=== PATIENT | female | born 1965 | race Caucasian/White ===

== ENCOUNTER 2024-12-31 21:18 | Inpatient (IN) | payer OTHER, SELFPAY ==
[2024-12-31] VITALS (9 sets, daily range): BP systolic 109–134; BP diastolic 67–84; BMI 17.5; BMI 16.9
[2024-12-31 16:15] LABS: Hematocrit 42.9 % (37.0-47.0); Hemoglobin 13.8 g/dL (12.0-16.0); Mean Corp Hgb Conc. 32.2 g/dL (33.0-37.0); Mean Corpuscular Volume 91.1 fL (81.0-99.0); Nucleated Red Blood Cells % 0 %; Platelet Count 472 10^3/uL (130-400); Red Cell Dist. Width 13.9 % (11.5-14.5)
[2024-12-31 16:32] LABS: ALT (SGPT) 16 U/L (0-35); AST (SGOT) 26 U/L (14-36); Albumin 4.7 g/dl (3.5-5.0); Alkaline Phosphatase 162 U/L (38-126); Blood Urea Nitrogen 12 mg/dl (7-17); Calcium 9.7 mg/dl (8.4-10.2); Carbon Dioxide 28 mmol/L (22-30); Chloride 100 mmol/L (98-107); Estimated Creatinine Clearance 62 ml/min; Glucose 177 mg/dl (70-99); Potassium 4.2 mmol/L (3.5-5.1); Sodium 137 mmol/L (135-145); Total Protein 8.0 g/dl (6.3-8.2); eGFR > 60.00
[2024-12-31] MEDS: DUONEB 3 ML INH (17:12)
[2024-12-31] MEDS: DECADRON 10 MG PO (17:12)
[2024-12-31 17:43] LABS: D-Dimer 0.89 ug/mlFEU (0.00-0.50)
[2024-12-31 18:35] LABS: Urine Character Cloudy (Clear)
[2024-12-31 18:56] LABS: Urine White Cell >100 /HPF (0-5)
--- NOTE | 2024-12-31 20:09 | ED.GENMED ---
History of Present Illness
<Kajal Jones NP - Last Filed: 12/31/24 23:13>
General
Chief Complaint: Cold/Flu/URI Symptoms
Source: patient
Exam Limitations: none
Time Seen by Provider: 12/31/24 15:49
Nursing documentation reviewed up to this point in time: agreed with
History of Present Illness
History of Present Illness:
Patient to ED with complaint of worsening SOB, increasing cough. Symptoms started 2-3 days ago. Denies fever/chills. History of COPD, using her inhalers at home without improvement. States she has had these symptoms before with pneumonia dx.
Past History
<Kajal Jones CLINICAL LABORATORY MANAGER - Last Filed: 12/31/24 23:13>
Past History
ED Past Medical History: COPD
ED Past Surgical History: None
Social History
Tobacco: Smoker (1/2ppd)
Review of Systems
<Kajal Jones NP - Last Filed: 12/31/24 23:13>
Review of Systems
Allergies reviewed?: Yes
All Other Systems: ROS reviewed and negative except as documented in HPI and ROS
Constitutional: Reports no symptoms
EENT: Reports no symptoms
Respiratory: Reports cough and trouble breathing
Cardiac: Reports no symptoms
ABD/GI: Reports no symptoms
: Reports no symptoms
Musculoskeletal: Reports no symptoms
Skin: Reports no symptoms
Neurological: Reports weakness
Psychiatric: Reports no symptoms
Phy Exam
<Kajal Jones NP - Last Filed: 12/31/24 23:13>
General Physical Exam
General Presentation: well appearing and no apparent distress
General age: appears stated age
General Skin: warm and dry
General Habitus: normal
General Mental: alert
Cardiovascular Exam
Cardiovascular Exam: regular rate/rhythm and no edema
Pulmonary Exam
Pulmonary Exam: decreased breath sounds and generalized wheezing
Oxygen Status: room air
Cough: coarse cough
Gastrointestinal Exam
Gastrointestinal Exam: normal bowel sounds, non tender, soft, no organomegaly and non distended
Musculoskeletal Exam
Musculoskeletal Exam: full ROM and neuro vasc intact
Skin Exam
Skin Exam: normal color, warm/dry and no rash
Psychiatric Exam
Psychiatric Exam: normal mood/affect
Sepsis
<Kajal Jones CLINICAL LABORATORY MANAGER - Last Filed: 12/31/24 23:13>
Sepsis Screening
Sepsis Assessment: Sepsis Ruled Out
Sepsis Screen
Sepsis Screen: Sepsis Ruled Out
Date: 12/31/24
Time: 23:13
Course
<Kajal Jones CLINICAL LABORATORY MANAGER - Last Filed: 12/31/24 23:13>
Orders/Labs/Results
Orders:
Orders
12/31/24 15:30
Electrocardiogram (*1) Urgent
Reason for Study: Chest Pain
12/31/24 15:31
EKG- Treatment ONCE
CR Chest - 2 Views Urgent
Comment:
Reason For Exam: cough, SOB
12/31/24 16:08
Complete Blood Count/With Diff Urgent
Comprehensive Metabolic Panel Urgent
12/31/24 16:45
Dexamethasone Pf [Decadron] 10 mg PO NOW STA
Ipratropium/Albuterol Sulfate [Duoneb] 3 ml INH R NOW STA
12/31/24 17:16
D-Dimer Urgent
12/31/24 17:49
CT Chest PE Study Urgent
Comment:
Reason For Exam: SOB, elevated DDimer
12/31/24 18:07
Urinalysis Reflex To Culture Urgent
Date Specimen was Collected: 12/31/24
Time Specimen was Collected: 18:03
Urine Microscopic Reflex Cult Urgent
Urine Culture Urgent
FLAKO Source: U
Specimen Description:
Date Specimen was Collected: 12/31/24
Time Specimen was Collected: 18:03
12/31/24 20:23
Albuterol Sulfate [Ventolin Nebules] 7.5 mg INH R NOW STA
12/31/24 20:24
Doxycycline [Vibramycin] 100 mg PO NOW STA
12/31/24 21:08
Admit/Transfer Patient As Directed
Co-Sign Provider:
Level of Care: Inpatient admission
Assign to:: Medical/Surgical
Physician / Group: Yo
Diagnosis: COPD exacerbation
Reason for Hospitalization: hypoxia with COPD exacerbation/pneumonia
Expected length of stay greater than two midnights?: Yes
ELOS- Estimated Length of Stay in days: 2
I certify the patient meets the requirements for IP care: Yes
PRN Pain Medication Management As Directed
May give lesser potent ordered pain med per pt: Yes
preference::
Protocol:: Medication orders for pain may be administered in a
manner that supports deferring to patient preference
when the pt is:
- Requesting an ordered lesser potent pain medication.
Least to most potent pain medications are defined
as: acetaminophen < NSAID < tramadol < opioids
(morphine, oxycodone, hydromorphone).
- Requesting a lesser dose of the same medication IF
ORDERED.
- Requesting a less intrusive route of administration
if both routes are prescribed by the provider (PO <
IV).
12/31/24 21:09
Code Status As Directed
Resuscitation Status: Full Code
12/31/24 22:21
Respiratory Culture/Gram Stain Routine
FLAKO Source: Sputum
Specimen Description:
Date Specimen was Collected: 12/31/24
Time Specimen was Collected: 22:12
Abnormal Lab Results
12/31/24 12/31/24 12/31/24
16:08 17:16 18:07
WBC 12.9 H 10^3/uL
(4.8-10.8)
MCHC 32.2 L g/dL
(33.0-37.0)
Plt Count 472 H 10^3/uL
(130-400)
Abs Immat Gran (auto) 0.1 H 10^3/uL
(0-0.05)
Absolute Neuts (auto) 9.2 H 10^3/uL
(1.4-6.5)
Absolute Monos (auto) 0.9 H 10^3/uL
(0.1-0.6)
Absolute Eos (auto) 0.8 H 10^3/uL
(0-0.7)
Lymphocytes % 14.6 L %
(20.5-51.1)
Eosinophils % 6.4 H %
(0-6)
D-Dimer 0.89 H ug/mlFEU
(0.00-0.50)
Glucose 177 H mg/dl
(70-99)
Alkaline Phosphatase 162 H U/L
(38-126)
Ur Occult Blood Reflex 3+ A
(Negative)
Leukocyte Esterase Rfl 3+ A
(Negative)
Urine WBC (Reflex) >100 A /HPF
(0-5)
Urine Glucose 4+ A
(Negative)
Urine Albumin (Reflex) 2+ A
(Neg - Trace)
12/31/24 16:08
12/31/24 16:08
Vital Signs
Initial and Last Documented VS:
Initial Vital Signs
Pulse Resp BP Pulse Ox
126 22 118/84 92
12/31/24 15:22 12/31/24 15:22 12/31/24 15:22 12/31/24 15:22
Last Documented Vital Signs
Temp Pulse Resp BP Pulse Ox
98.7 F 120 16 118/78 97
12/31/24 22:42 12/31/24 22:42 12/31/24 22:42 12/31/24 22:42 12/31/24 22:42
<Al Ventura, DO - Last Filed: 12/31/24 20:26>
Orders/Labs/Results
Orders:
Orders
12/31/24 15:30
Electrocardiogram (*1) Urgent
Reason for Study: Chest Pain
12/31/24 15:31
EKG- Treatment ONCE
CR Chest - 2 Views Urgent
Comment:
Reason For Exam: cough, SOB
12/31/24 16:08
Complete Blood Count/With Diff Urgent
Comprehensive Metabolic Panel Urgent
12/31/24 16:45
Dexamethasone Pf [Decadron] 10 mg PO NOW STA
Ipratropium/Albuterol Sulfate [Duoneb] 3 ml INH R NOW STA
12/31/24 17:16
D-Dimer Urgent
12/31/24 17:49
CT Chest PE Study Urgent
Comment:
Reason For Exam: SOB, elevated DDimer
12/31/24 18:07
Urinalysis Reflex To Culture Urgent
Date Specimen was Collected: 12/31/24
Time Specimen was Collected: 18:03
Urine Microscopic Reflex Cult Urgent
Urine Culture Urgent
FLAKO Source: U
Specimen Description:
Date Specimen was Collected: 12/31/24
Time Specimen was Collected: 18:03
12/31/24 20:23
Albuterol Sulfate [Ventolin Nebules] 7.5 mg INH R NOW STA
12/31/24 20:24
Doxycycline [Vibramycin] 100 mg PO NOW STA
12/31/24 21:08
Admit/Transfer Patient As Directed
Co-Sign Provider:
Level of Care: Inpatient admission
Assign to:: Medical/Surgical
Physician / Group: Yo
Diagnosis: COPD exacerbation
Reason for Hospitalization: hypoxia with COPD exacerbation/pneumonia
Expected length of stay greater than two midnights?: Yes
ELOS- Estimated Length of Stay in days: 2
I certify the patient meets the requirements for IP care: Yes
PRN Pain Medication Management As Directed
May give lesser potent ordered pain med per pt: Yes
preference::
Protocol:: Medication orders for pain may be administered in a
manner that supports deferring to patient preference
when the pt is:
- Requesting an ordered lesser potent pain medication.
Least to most potent pain medications are defined
as: acetaminophen < NSAID < tramadol < opioids
(morphine, oxycodone, hydromorphone).
- Requesting a lesser dose of the same medication IF
ORDERED.
- Requesting a less intrusive route of administration
if both routes are prescribed by the provider (PO <
IV).
12/31/24 21:09
Code Status As Directed
Resuscitation Status: Full Code
12/31/24 22:21
Respiratory Culture/Gram Stain Routine
FLAKO Source: Sputum
Specimen Description:
Date Specimen was Collected: 12/31/24
Time Specimen was Collected: 22:12
Abnormal Lab Results
12/31/24 12/31/24 12/31/24
16:08 17:16 18:07
WBC 12.9 H 10^3/uL
(4.8-10.8)
MCHC 32.2 L g/dL
(33.0-37.0)
Plt Count 472 H 10^3/uL
(130-400)
Abs Immat Gran (auto) 0.1 H 10^3/uL
(0-0.05)
Absolute Neuts (auto) 9.2 H 10^3/uL
(1.4-6.5)
Absolute Monos (auto) 0.9 H 10^3/uL
(0.1-0.6)
Absolute Eos (auto) 0.8 H 10^3/uL
(0-0.7)
Lymphocytes % 14.6 L %
(20.5-51.1)
Eosinophils % 6.4 H %
(0-6)
D-Dimer 0.89 H ug/mlFEU
(0.00-0.50)
Glucose 177 H mg/dl
(70-99)
Alkaline Phosphatase 162 H U/L
(38-126)
Ur Occult Blood Reflex 3+ A
(Negative)
Leukocyte Esterase Rfl 3+ A
(Negative)
Urine WBC (Reflex) >100 A /HPF
(0-5)
Urine Glucose 4+ A
(Negative)
Urine Albumin (Reflex) 2+ A
(Neg - Trace)
12/31/24 16:08
12/31/24 16:08
Vital Signs
Initial and Last Documented VS:
Initial Vital Signs
Pulse Resp BP Pulse Ox
126 22 118/84 92
12/31/24 15:22 12/31/24 15:22 12/31/24 15:22 12/31/24 15:22
Last Documented Vital Signs
Temp Pulse Resp BP Pulse Ox
98.7 F 120 16 118/78 97
12/31/24 22:42 12/31/24 22:42 12/31/24 22:42 12/31/24 22:42 12/31/24 22:42
<Kajal Jones NP - Last Filed: 12/31/24 23:13>
*Radiology
Radiology exam reviewed: radiology read reviewed
*Pulse Oximetry
SaO2: 99
Oxygen Mode of Delivery: Room air
Patient hypoxic: yes
Comment: 88% RA with ambulation. 94% RA at rest.
<Al Ventura DO - Last Filed: 12/31/24 20:26>
*Pulse Oximetry
SaO2: 89
Comment: 88
*Critical Care Note
Total Time (30-74mins, 75-104mins- exclusive of procedures): Not Applicable
<Kajal Jones NP - Last Filed: 12/31/24 23:13>
Update Note
Update Note:
Patient to ED with complaint of worsening SOB and cough. Hx of COPD. Using her home inhalers without improvement. No fever/chills. Lungs with expiratory wheezing throughout. Given dose of decadron in ED. Duoneb and hour long albuterol neb
given also with mild improvement. Pulse ox remains 94% RA, 88% with minimal activity. CXR without changes noted. Chest CT - scattered small parenchymal opacities which are new. Possible pneumonia, placedon doxycycline. Case discussed with
Audrey who also evaluated this patient. WIll admit to hospitalist service.
ED Attending Note
<Kajal Jones CLINICAL LABORATORY MANAGER - Last Filed: 12/31/24 23:13>
-
Portions of this chart may have been created with voice recognition software.� Occasional wrong word or��sound alike� substitutions may have occurred due to the inherent limitations of voice recognition software.
<Al Ventura DO - Last Filed: 12/31/24 20:26>
ED Attending Note
Patient seen and examined by attending physician: Yes
I performed the substantive portion of visit, reviewed & personally made and approve the management plan that is documented in note by myself or BO.: Yes
ED Attending Note:
Seen with CLINICAL LABORATORY MANAGER examined independently 59-year-old female smoker COPD sees pulmonary cough congestion low pulse ox chest x-ray noted
Discharge Plan
Departure
Patient Disposition: Admit
Date of Disposition: 12/31/24
Time of Disposition: 20:15
Presentation/result/management discussed w/ accepting MD/DO: Hospitalist
Patient with high blood pressure during this ER visit?: No
Condition: Fair
Discharge Problem:
COPD exacerbation, Pneumonia
Interventions
Interventions:
*Risk Screen - Suicide Last Done: 12/31/24 15:30
*General Assessment Last Done: 12/31/24 16:19
*Neglect/Abuse Screening Last Done: 12/31/24 15:30
*ED- Fall Risk Assessment Last Done: 12/31/24 16:18
*ED COVID-19 Vaccine History Last Done: 12/31/24 16:18
*Nursing Disposition Last Done: 12/31/24 22:27
ED- Pulmonary Assessment Last Done: 12/31/24 16:16
Discharge Date and Time
Discharge Date/Time: 12/31/24 22:27
[2024-12-31] MEDS: VIBRAMYCIN 100 MG PO (20:39)
[2024-12-31] MEDS: VENTOLIN NEBULES 7.5 MG INH (20:39)
--- NOTE | 2024-12-31 20:39 | HPS.HSE ---
Family Physician
-
Family Physician: Sam Cartagena MD
Chief Complaint
-
Upper respiratory symptoms and cough
History of Present Illness
This is a 59-year-old female with past medical history significant for emphysema/COPD not on home O2, history of prior breast cancer presenting to the emergency department with 2 to 3 days of worsening cough and shortness of breath.
Patient reports acute onset of initially nonproductive cough. She is having cough paroxysms and then development of shortness of breath. She reports dyspnea on exertion. Denies any known sick contacts or recent travel. She was checked for COVID
and flu and they were negative. She reports her last hospitalization for her respiratory symptoms for was about 2018 when she had pneumonia. She been managing her COPD at home with long-acting inhalers as well as rescue inhalers but they are not
proven to be effective at this time.
Patient also reports that she has been having urinary frequency and was diagnosed with UTI. She has been on multiple antibiotics initially starting with Bactrim which did not result in improvement of symptoms, she is taking ciprofloxacin which was
discontinued due to sensitivities and she has just finished 5 days of Macrobid. Patient continues to have frequency and cloudy colored urine.
In the emergency department patient was afebrile, blood pressure was 134/81 with heart rate of 115 and she was satting 89% on room air. X-ray was unremarkable. ECG with sinus tachycardia at 121. She did have elevated D-dimer with a CT PE study
that was negative for PE but showed scattered small foci of parenchymal opacity, suggesting scattered foci of small airway disease which could be suggestive of acute pneumonia.
She had a white count of 12.9, hemoglobin 13.8 platelet count of 472. Electrolytes BUN and creatinine were normal. UA remains positive
Medical History
Past Medical History
Past Medical History: Reports Cancer (History of breast cancer) and COPD
Additional Past Medical History:
Past Surgical History: Reports Cholecystectomy and Other (Mastectomy)
Social History
Tobacco: Former Smoker
Alcohol: None
Drug: None
Family History
Family History: Not pertinent
Allergies / Home Medications
Allergies reflects when Allergies were last updated in [facility].
Home Medications with original date entered in [facility]
Allergy/Medication List:
Allergies
Allergy/AdvReac Type Severity Reaction Status Date / Time
ceftazidime Allergy Rash Verified 12/31/24 15:29
Cephalosporins Allergy hearing Verified 12/31/24 15:29
loss
codeine Allergy Itching Verified 12/31/24 15:29
lanolin Allergy skin Verified 12/31/24 15:29
irritation
latex Allergy skin Verified 12/31/24 15:29
irritation/rash
Penicillins Allergy i dont Verified 12/31/24 15:29
remember
why
ADHESIVE TAPE Allergy skin Uncoded 12/31/24 15:29
irritation
and rash
Home Medications
Claritin 10 MG 1 tablet Orally Once a day seasonally Active
Dapagliflozin Propanediol 10 MG 1 tablet Orally Once a day Active
Protonix 20 MG 1 tablet Orally Once a day Active
Gabapentin 300 MG 3 tablets Orally AT HS Active
Desvenlafaxine Succinate 50mg Active
Combivent Respimat 20-100 MCG/ACT 2 puffs Inhalation every 6 hrs for 30 days PRN Active
Tamoxifen Citrate 20 MG 1 tablet Orally Once a day Unsure of dose Active
Chantix 1mg once a day Active
traMADol HCl 50 MG 1 tablet as needed Orally Once a day PRN Active
Stiolto Respimat 2.5-2.5 MCG/ACT INHALE TWO PUFFS BY MOUTH AND INTO THE LUNGS ONCE DAILY for 30 Active
Review of Systems
-
Constitutional: Reports No Symptoms
EENT: Reports No Symptoms
Respiratory: Reports Cough and Trouble Breathing
Cardiac: Reports No Symptoms
Abdomen/GI: Reports No Symptoms
: Reports Frequency
Musculoskeletal: Reports No Symptoms
Skin: Reports No Symptoms
Neurological: Reports No Symptoms
Endocrine: Reports No Symptoms
Hematologic/Lymphatic: Reports No Symptoms
Psych: Reports No Symptoms
Physical Exam
Vital Signs
Vital Signs
Temp Pulse Resp BP Pulse Ox
98.0 F 115 20 134/81 89
12/31/24 16:19 12/31/24 20:00 12/31/24 20:00 12/31/24 20:00 12/31/24 20:26
Physical Exam
General: Well Developed, Well Nourished and No Apparent Distress
HEENT: NormoCephalic, Moist mucous membranes, Atraumatic and Oxygen
Respiratory: Wheezes, Rhonchi and Decreased Breath Sounds
Cardiac: S1/S2 and Regular Rhythm; No Murmur or Rub
GI: Soft, Non Tender, Non Distended and Normal Bowel Sounds; No Organomegaly
Rectal: Deferred by Provider
Genito-urinary: Deferred by me
Musculoskeletal: No Clubbing, No Cyanosis and No Edema
Skin: No Rash
Neuro: AO x 3 and Nonfocal/grossly intact
Psych: Calm
Laboratory Results
-
12/31/24 16:08
12/31/24 16:08
Laboratory Results
Total Bilirubin 0.5 mg/dl (0.2-1.3) 12/31/24 16:08
AST 26 U/L (14-36) 12/31/24 16:08
ALT 16 U/L (0-35) 12/31/24 16:08
Alkaline Phosphatase 162 U/L (38-126) H 12/31/24 16:08
Data Reviewed
-
Diagnostic Radiology: Report Reviewed by me
CT Scan: Report Reviewed by me
Medical Tests (Nuc Med, Echo, EKG etc): Image Personally Visualized and interpreted
Lab Data: Labs Reviewed by me
Old Records: Reviewed
Impression/Plan
-
IMPRESSION:
59-year-old with emphysema presenting with cough and shortness of breath, found to be hypoxic to 89% on room air. Dyspnea on exertion. CT scan with scattered foci consistent with a likely viral pneumonia but cannot rule out bacterial pneumonia.
Her cough is productive of clearish sputum. She felt this is similar to her episode when she had pneumonia in the past. No evidence of PE. Continues to have urinary symptoms and positive UA.
PLAN:
1. COPD Exacerbation -multiple scattered foci COVID consistent with pneumonia. She is afebrile, WBC is 12.9. Labs otherwise unremarkable.
- Admit to MedSurg
- Azithromycin
- Broaden with aztreonam if febrile
- IV solu-medrol 40 q 12
- continue duonebs RTC and prn q 3hrs
- sputum culture
- negative covid/flu as outpatient
2. UTI - has positive u/a despite completing course of macrobid for E.coli uti. Had sensitivities suggesting should be sensitive to macrobid. Resistant to cipro.
- ucx pending
- on doxyc for now pending urine culture, aztreonam if febrile or levaquin if sensitive
3. DM II
- sliding scale insulin
- continue farxiga
4. RLS
- gabapentin 900 hs
DVT PPX - lovenox sq
Code status - Full Code
[2025-01-01] MEDS: DUONEB 3 ML INH ×5 (00:54→19:55)
[2025-01-01] MEDS: SOLU-MEDROL PF 40 MG IV ×3 (01:13→23:35)
[2025-01-01] MEDS: ANESTHETIC LOZENGE 1 LOZENGE PO ×2 (01:13→23:42)
[2025-01-01] MEDS: NEURONTIN 900 MG PO ×2 (01:13→21:43)
--- NOTE | 2025-01-01 02:15 | TRANSFER ---
Pt transferred to 3W from ED via stretcher. Pt ambulated to hospital bed. AAOx3 at bedside. Pt oriented to room, Call lambert with in reach, plan of care ongoing.
[2025-01-01 07:03] LABS: Blood Urea Nitrogen 18 mg/dl (7-17); Calcium 9.4 mg/dl (8.4-10.2); Carbon Dioxide 26 mmol/L (22-30); Chloride 103 mmol/L (98-107); Estimated Creatinine Clearance 70 ml/min; Glucose 206 mg/dl (70-99); Potassium 4.8 mmol/L (3.5-5.1); Sodium 138 mmol/L (135-145); eGFR > 60.00
[2025-01-01 07:14] LABS: Glucose - Point of Care 196 mg/dl (70-99)
[2025-01-01 07:15] VITALS: BP 101/59
[2025-01-01] MEDS: NOVOLOG FLEXPEN-LOW RESISTANCE SC (07:21)
[2025-01-01] MEDS: MUCINEX 600 MG PO ×2 (08:11→19:50)
[2025-01-01] MEDS: FARXIGA 10 MG PO (08:11)
[2025-01-01] MEDS: PROTONIX 20 MG PO (08:11)
[2025-01-01] MEDS: CLARITIN 10 MG PO (08:12)
[2025-01-01] MEDS: CHANTIX 1 MG PO (08:12)
[2025-01-01] MEDS: ZITHROMAX INFUSION 250 IV (08:16)
--- NOTE | 2025-01-01 10:00 | W.PN.HOSP.TC ---
Today's Communication/Plan
-
see outlined plan
Assessment / Plan
Assessment / Plan
Assessment:
Acute hypoxic respiratory insuffiency on 2L NC
Acute COPD exacerbation
- CT: no PE. Emphysema. Scattered small foci of parenchymal opacity, suggesting scattered foci of small airway disease, as described above. These are new since CT scan of July 21, 2022, although could be acute or chronic. Please correlate with
symptoms that suggest acute pneumonia.
- agree with Azithromycin. Antibiotic allergies noted. check procal.
- continue Solu-Medrol IV
- Nebs QID and Prn
- supportive care with anti-tussives, mucolytics. IS/Acapella
Recent UTI
- recently completed Macrobid course, UA remains dirty
- await repeat culture results
- d/w pharmacy and will try test-dosing Rocephin (distant hx of possible PCN or Ceph allergy from 2002).
Type 2 DM
- on Farxiga
- on low dose Monjauro at home
- SSI
RLS
- on Gabapentin
DVT ppx: Lovenox
Code: Full
Anticipated Discharge: 24 - 48 hours
Subjective/Interval History
-
Date of Service: January 01, 2025
reports less SOB but remains congested
on 2L NC
Objective Data
-
Labs:
Laboratory Results
01/01/25
06:07
Sodium 138
Potassium 4.8
Chloride 103
Carbon Dioxide 26
BUN 18 H
Creatinine 0.6
Glucose 206 H
Calcium 9.4
Vital Signs:
Vital Signs
Temp Pulse Resp BP Pulse Ox
97.7 F 98 16 101/59 85
01/01/25 07:15 01/01/25 07:15 01/01/25 07:22 01/01/25 07:15 01/01/25 07:22
I&O
12/31/24 01/01/25 01/02/25
06:59 06:59 06:59
Intake Total 480 / 480 360 / 360
Balance 480 / 480 360 / 360
Physical Exam
-
General: No Apparent Distress
HEENT: Normocephalic and Atraumatic
Respiratory: Wheezes (inspiratory and expiratory)
Cardiac: Regular Rhythm and S1/S2
GI: Soft and Nontender
Neuro: AO x 3
Psych: Calm
Data Reviewed
-
Total Time Spent with Patient (in minutes): 44
Labs: Labs Reviewed by me
[2025-01-01] MEDS: ROCEPHIN 110 MG IV (11:21)
[2025-01-01 11:32] LABS: Glucose - Point of Care 318 mg/dl (70-99)
--- NOTE | 2025-01-01 13:18 | CM ---
Patient seen at bedside with
IA completed
Dx: COPD exacerbation
Lives with and son 1 story home, 2 PIA
plof: independent, drives
Denies DME
Denies vn/has done outpatient pulmonary rehab in the past
pcp: Sam De La Cruz
Pharmacy: [address]
PLAN: Home, CM watch for oxygen needs
[2025-01-01 13:39] LABS: Glucose - Point of Care 214 mg/dl (70-99)
[2025-01-01] MEDS: NOVOLOG FLEXPEN-LOW RESISTANCE 2 UNITS SC ×2 (13:40→18:28)
[2025-01-01 15:05] VITALS: BP 120/73
[2025-01-01 17:23] LABS: Glucose - Point of Care 224 mg/dl (70-99)
[2025-01-01] MEDS: LOVENOX 40 MG SC (17:56)
[2025-01-01] MEDS: TYLENOL 650 MG PO (19:50)
[2025-01-01 21:32] LABS: Glucose - Point of Care 231 mg/dl (70-99)
[2025-01-01 22:41] VITALS: BP 117/71
[2025-01-01] MEDS: MELATONIN 3 MG PO (23:34)
[2025-01-02] MEDS: DUONEB 3 ML INH ×3 (07:06→15:26)
[2025-01-02 07:20] LABS: Hematocrit 37.6 % (37.0-47.0); Hemoglobin 12.1 g/dL (12.0-16.0); Mean Corp Hgb Conc. 32.2 g/dL (33.0-37.0); Mean Corpuscular Volume 90.4 fL (81.0-99.0); Platelet Count 458 10^3/uL (130-400); Red Cell Dist. Width 14.1 % (11.5-14.5)
[2025-01-02 07:35] VITALS: BP 130/80
[2025-01-02 07:46] LABS: Procalcitonin < 0.05 ng/ml (0.0-0.25)
[2025-01-02] MEDS: MUCINEX 600 MG PO ×2 (07:52→19:54)
[2025-01-02] MEDS: CLARITIN 10 MG PO (07:53)
[2025-01-02] MEDS: CHANTIX 1 MG PO (07:53)
[2025-01-02] MEDS: FARXIGA 10 MG PO (07:53)
[2025-01-02] MEDS: ZITHROMAX INFUSION 250 IV (07:53)
[2025-01-02] MEDS: PROTONIX 20 MG PO (07:53)
[2025-01-02 08:07] LABS: Blood Urea Nitrogen 16 mg/dl (7-17); Calcium 9.3 mg/dl (8.4-10.2); Carbon Dioxide 26 mmol/L (22-30); Chloride 104 mmol/L (98-107); Estimated Creatinine Clearance 70 ml/min; Glucose 251 mg/dl (70-99); Potassium 4.8 mmol/L (3.5-5.1); Sodium 138 mmol/L (135-145); eGFR > 60.00
[2025-01-02] MEDS: TYLENOL 650 MG PO ×2 (08:17→17:51)
[2025-01-02 08:20] LABS: Glucose - Point of Care 196 mg/dl (70-99)
[2025-01-02] MEDS: NOVOLOG FLEXPEN-LOW RESISTANCE 1 UNITS SC ×2 (08:57→12:35)
--- NOTE | 2025-01-02 09:12 | CON.PUL ---
Consultation
Consultation Request
Date/Time Consultation Requested: 01/02/25
Date/Time Consultation Performed: 01/02/25
Performing Provider: Juan C
Reason for Consultation: AECOPD
Medical History
-
History of Present Illness:
Patient is a 59-year-old female with previous history of COPD, emphysema presented to ER with 2 to 3 days of worsening cough and shortness of breath. She feels this may have been triggered by stress. She was recently diagnosed and treated with
UTI as an outpatient. In ER she was notably tachycardic with heart rate of 115, satting 89% on room air. Her chest x-ray was unremarkable. She had a CT to rule out PE which was negative. She had findings suggestive of pneumonia. She is admitted
for acute exacerbation of COPD.
She is known to our office and follows with Dr. White. She was last seen in 2022. She acknowledges that she had not followed up as an outpatient.
Past Medical History
Past Medical History: Other (see list below)
Social History
Tobacco: Former Smoker
Alcohol: None
Drug: None
Family History
Family History: Reviewed & Not Pertinent
Allergies / Home Medications
Allergies
Allergy/AdvReac Type Severity Reaction Status Date / Time
ceftazidime Allergy TOLERATED Verified 01/01/25 13:58
CEFTRIAXONE;
possible
rash (2002)
codeine Allergy Itching Verified 12/31/24 15:29
lanolin Allergy skin Verified 12/31/24 15:29
irritation
latex Allergy skin Verified 12/31/24 15:29
irritation/rash
Penicillins Allergy i dont Verified 12/31/24 15:29
remember
why
ADHESIVE TAPE Allergy skin Uncoded 12/31/24 15:29
irritation
and rash
Home Medications
�Medication �Instructions �Recorded �Confirmed �Last Taken �Type
alprazolam 0.5 mg tablet 0.5 mg PO HS PRN anxiety 01/01/25 01/01/25 Unknown History
dapagliflozin propanediol 10 mg 10 mg PO DAILY 01/01/25 01/01/25 Unknown History
tablet (Farxiga)
desvenlafaxine succinate 50 mg 50 mg PO 1XD 01/01/25 01/01/25 Unknown History
tablet,extended release 24 hr
gabapentin 300 mg tablet 900 mg PO HS 01/01/25 01/01/25 Unknown History
loratadine 10 mg tablet (Claritin) 10 mg PO DAILY 01/01/25 01/01/25 Unknown History
pantoprazole 40 mg tablet,delayed 40 mg PO DAILY 01/01/25 01/01/25 Unknown History
release
semaglutide 3 mg tablet (Rybelsus) 3 mg PO DAILY 01/01/25 01/01/25 12/30/24 History
tirzepatide 2.5 mg/0.5 mL 2.5 mg SC QWEEK 01/01/25 01/01/25 Unknown History
subcutaneous pen injector
(Mounjaro)
varenicline tartrate 1 mg tablet 1 mg PO BID 01/01/25 01/01/25 Unknown History
Review of Systems
-
History Source: Patient
All other systems: Negative unless noted
Vitals / Labs / Diagnostic Testing
Vital Signs
Temp Pulse Resp BP Pulse Ox
98.8 F 113 22 130/80 96
01/02/25 07:35 01/02/25 07:35 01/02/25 07:35 01/02/25 07:35 01/02/25 07:35
Lab Data
01/02/25 07:03
01/02/25 07:03
Microbiology
12/31/24 22:21 Sputum Gram Stain - Preliminary
Diagnostic Testing:
Physical Exam
-
HEENT: Normocephalic, Anicteric and Moist Mucous Membranes
Cardiovascular: S1/S2 and Regular Rhythm
Respiratory: Wheeze (faint, on forced exhalation) and Non-Labored Respirations
GI: Soft, Non Distended and Non Tender
Neurology: Awake, Alert, Oriented and No Motor Deficits
Skin: Warm, Dry and Good Color
General: Comfortable and Other (NAD)
Assessment
-
Patient is a 59-year-old female with previous history of COPD, emphysema presented to ER with 2 to 3 days of worsening cough and shortness of breath. She feels this may have been triggered by stress. She was recently diagnosed and treated with
UTI as an outpatient. In ER she was notably tachycardic with heart rate of 115, satting 89% on room air. Her chest x-ray was unremarkable. She had a CT to rule out PE which was negative. She had findings suggestive of pneumonia. She is admitted
for acute exacerbation of COPD.
She is known to our office and follows with Dr. White. She was last seen in 2022. She acknowledges that she had not followed up as an outpatient.
AE COPD
Mild pulmonary insufficiency, 89% on RA
PNA
Leukocytosis, likely steroid-induced
Hyperglycemia
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
Severe-COPD/emphysema/chronic bronchitis phenotype-air trapping.
Follows w/ [facility], on Stiolto
Pulmonary function testing 06/04/2022: Moderate to severe airflow obstruction with severe gas exchange abnormality. Mild air trapping.
Former smoker-stopped smoking in April 2022
History of abnormal chest CT-micronodules bibasilar, 3mm pulmonary nodule
Breast cancer s/p Mastectomy
Eczema
s/p Cholecystectomy
Right small finger proximal phalanx fracture s/p closed reduction, percutaneous pinning, right small finger proximal phalanx fracture 2016
Plan
Hypoxemia noted on arrival, O2 paul 89%
No oxygen was needed on admission, currently saturating >90% on RA
Home O2 evaluation, she is not known to be on home oxygen
Prior history of lung disease is noted including COPD/emphysema
Follows with Dr. White as an outpatient, last seen 2022
We discussed the importance of follow-up
Suspect patient has AE COPD--moderate to severe obstruction on PFT in 2022
Agree with IV steroids, this can be weaned and transition to prednisone while she is improving
I will add Advair to her regiment which would help with her coughing, she is on Stiolto as OP
This can be changed to Breztri as OP, she would need FU PFTs in office
CXR/CT obtained indicating no acute findings, possible PNA noted
PCT negative
Sputum and urine sent, negative
Can stop abx and observe off
Other imaging reviewed--last LDCT in 2022, she is due in 2025 (CT in hospital negative for 2024)
No history of cardiac disease
No prior ECHO for review
Smoking history noted
Continue smoking cessation efforts
Will need outpatient pulmonary evaluation in our office for PFTs and 6MWT
Reviewed with patient and spouse at bedside
Can likely discharge in next 24 hours if she feels improvement
We will follow
Diagnostic Data
Chest X-Ray: 12/31/24- Hyperinflated lungs compatible with COPD/emphysema. Chronic pleural parenchymal scarring inferiorly bilaterally, stable appearance.
No convincing evidence for new lung parenchymal opacity.
CT Scan: CHEST 12/31/24- Examination is negative for pulmonary embolism. Changes of emphysema within both lungs.
Scattered small foci of parenchymal opacity, suggesting scattered foci of small airway disease, as described above. These are new since CT scan of July 21, 2022, although could be acute or chronic. Please correlate with symptoms that suggest acute
pneumonia.
Intrahepatic bile duct air, unchanged from prior CT, the most likely from previous instrumentation.
Fatty infiltration of the visualized liver.
LDCT 2022:There is no evidence of pulmonary malignancy.
There is chronic obstructive pulmonary disease with mild centrilobular emphysema.
The stability of the 3.5 mm noncalcified pulmonary nodule at the anterolateral aspect of the superior segment of the left lower lobe dating back to 10/13/2018 indicates that it is benign.
Echo:
PFT's:
Reports and relevant images were personally reviewed.
Total time spent on this consultation __75__ minutes which includes review of history, physical exam, medications, laboratory data, personal review of imaging, extensive review of outpatient records, discussion with care team and respiratory therapy.
--- NOTE | 2025-01-02 09:15 | W.PN.HOSP.TC ---
Today's Communication/Plan
-
Consult pulmonary
Add Lantus
Assessment / Plan
Assessment / Plan
Physical Exam
-
General: No Apparent Distress
HEENT: Normocephalic and Atraumatic
Respiratory: I did not appreciate alot of wheezes, limited over all
Cardiac: Regular Rhythm and S1/S2
GI: Soft and Nontender
MSK; no leg swelling
Neuro: AO x 3, Gait is normal. Non-focal
Psych: Calm
Assessment:
Acute hypoxic respiratory failure with distress/ using accessory muscles, required 2L NC oxygen
Acute COPD exacerbation
c/w empiric IV ABx
c/w IV steroids with Nebs
Will consult pulmonary, pt sees DR White.
Hypoxia resolved.
Recent UTI
- recently completed Macrobid course, UA remains dirty
- await repeat culture results
- d/w pharmacy and will try test-dosing Rocephin (distant hx of possible PCN or Ceph allergy from 2002).
# epigastric pain
Pt was concerned about pancreatitis
Checked lipase, normal
# severe protein-caloric malnutrition
She has COPD/ chronic illness
she reports that medicine made lose the weight, now in process of changing it in OP setting
Type 2 DM
HGB A1C 6.3, good control
Expect high level due to steroid, add Lantus
- on Farxiga
- on low dose Monjauro at home
- SSI
Chronic pain syndrome with RLS
- on Gabapentin
DVT ppx: Lovenox
Code: Full
Total time spent to see the patient, examine the patient, review data and lab results, discuss treatment plan with patient, nursing staff around 55 minutes
Anticipated Discharge: > 48 hours
Subjective/Interval History
-
Date of Service: January 02, 2025
Still cough
No chest pain
No sob
No fevers
Objective Data
-
Labs:
Laboratory Results
01/02/25
07:03
WBC 22.7 H
Hgb 12.1
Hct 37.6
Plt Count 458 H
Sodium 138
Potassium 4.8
Chloride 104
Carbon Dioxide 26
BUN 16
Creatinine 0.6
Glucose 251 H
Calcium 9.3
Vital Signs:
Vital Signs
Temp Pulse Resp BP Pulse Ox
98.8 F 113 22 130/80 96
01/02/25 07:35 01/02/25 07:35 01/02/25 07:35 01/02/25 07:35 01/02/25 07:35
I&O
01/01/25 01/02/25 01/03/25
06:59 06:59 06:59
Intake Total 480 / 480 1919
Balance 480 / 480 1919
[2025-01-02 09:27] LABS: Lipase 26 U/L (23-300)
[2025-01-02 09:56] LABS: Glycohemoglobin (HgbA1c) 6.3 % (4.0-5.6)
[2025-01-02] MEDS: ROCEPHIN 1000 MG IV (10:06)
[2025-01-02] MEDS: STERILE WATER FOR INJECTION 10 ML IV (10:07)
[2025-01-02 11:19] VITALS: BMI 16.9
--- NOTE | 2025-01-02 11:28 | VATNOTE ---
Phlebitis noted at IV site in pt's L antecubital fossa. IV removed. Heat applied.
[2025-01-02] MEDS: SOLU-MEDROL PF 40 MG IV (11:34)
[2025-01-02 12:01] LABS: Glucose - Point of Care 189 mg/dl (70-99)
--- NOTE | 2025-01-02 12:51 | CM ---
patient seen at bedside
pulmonary consult
patient on oxygen
PLAN: Home when stable, CM to watch for 02 needs
[2025-01-02 15:00] VITALS: BP 144/94
[2025-01-02] MEDS: SPIRIVA RESPIMAT 2.5 MCG 2 PUFF INH (16:13)
[2025-01-02 16:59] LABS: Glucose - Point of Care 209 mg/dl (70-99)
--- NOTE | 2025-01-02 17:10 | PTCARENOTE ---
Pt c/o ongoing 09/27 LUQ abd pain. Pt reports decreased appetite. MD made aware, new order provided, see MAR.
[2025-01-02] MEDS: LOVENOX 40 MG SC (17:51)
[2025-01-02] MEDS: ZOFRAN 4 MG IV (17:51)
[2025-01-02] MEDS: FLUSH (NSS) 1 FLUSH IV (17:53)
--- NOTE | 2025-01-02 18:33 | PTCARENOTE ---
Pt c/o unrelieved 6/10 pain throughout LUQ abd. made aware, new order provided, see MAR.
[2025-01-02] MEDS: DILAUDID 0.5 MG IV ×2 (18:43→22:48)
[2025-01-02] MEDS: NOVOLOG FLEXPEN-LOW RESISTANCE 2 UNITS SC (18:44)
[2025-01-02] MEDS: ADVAIR HFA 230/21 MCG INHALER 2 PUFF INH (19:29)
[2025-01-02] MEDS: ANESTHETIC LOZENGE 1 LOZENGE PO (20:08)
[2025-01-02 21:28] LABS: Glucose - Point of Care 136 mg/dl (70-99)
[2025-01-02] MEDS: NEURONTIN 900 MG PO (22:49)
[2025-01-02] MEDS: LANTUS 0.15 UNITS SC (22:49)
[2025-01-02] MEDS: MELATONIN 3 MG PO (22:49)
[2025-01-02 23:02] VITALS: BP 135/85
[2025-01-03] MEDS: SOLU-MEDROL PF 40 MG IV (00:22)
[2025-01-03] MEDS: DILAUDID 0.5 MG IV ×3 (03:19→19:44)
[2025-01-03 07:27] VITALS: BP 109/67
[2025-01-03] MEDS: ZITHROMAX INFUSION 250 IV (07:42)
[2025-01-03] MEDS: MUCINEX 600 MG PO ×2 (07:43→19:46)
[2025-01-03] MEDS: FARXIGA 10 MG PO (07:43)
[2025-01-03] MEDS: CHANTIX 1 MG PO (07:43)
[2025-01-03] MEDS: PROTONIX 20 MG PO (07:44)
[2025-01-03 07:47] LABS: Glucose - Point of Care 148 mg/dl (70-99)
[2025-01-03] MEDS: NOVOLOG FLEXPEN-LOW RESISTANCE SC ×3 (07:48→17:10)
[2025-01-03] MEDS: CLARITIN 10 MG PO (07:57)
[2025-01-03] MEDS: SPIRIVA RESPIMAT 2.5 MCG 2 PUFF INH (08:08)
[2025-01-03] MEDS: ADVAIR HFA 230/21 MCG INHALER 2 PUFF INH ×2 (08:08→19:11)
--- NOTE | 2025-01-03 09:11 | W.PN.HOSP.TC ---
Today's Communication/Plan
-
Pt feels better but concerned to go home today
Hope to discharge Thursday
Assessment / Plan
Assessment / Plan
Physical Exam
-
General: No Apparent Distress
HEENT: Normocephalic and Atraumatic
Respiratory: I did not appreciate alot of wheezes, limited over all
Cardiac: Regular Rhythm and S1/S2
GI: Soft and Nontender
MSK; no leg swelling
Neuro: AO x 3, Gait is normal. Non-focal
Psych: Calm
Assessment:
Acute hypoxic respiratory failure with distress/ using accessory muscles, required 2L NC oxygen
Acute COPD exacerbation
can stop empiric IV ABx
s/p IV steroids
Continue with the breathing treatment
Patient started to complain of upper abdominal/epigastric pain. She felt could be recurrent pancreatitis. She had history of pancreatitis related to alcohol intake/gallbladder. She has had cholecystectomy. On examination, abdomen is soft and not
distended. This could be exacerbated from systemic steroid. Will hold on systemic steroid continue with inhaled steroids.
d/w pulmonary doctor, pt sees DR White.
Hypoxia resolved.
Recent UTI
- recently completed Macrobid course, UA remains dirty
-Repeat culture is negative
# Mild hyperkalemia
# epigastric pain
Could be from steroid
Hold systemic steroid
Increase PPI to 40 mg QD. Exam is overall normal abdomen.
Checked lipase, normal
# severe protein-caloric malnutrition
She has COPD/ chronic illness
she reports that medicine made lose the weight, now in process of changing it in OP setting
Type 2 DM
HGB A1C 6.3, good control
Will dc Lantus as we dc systemic steroid.
- on Farxiga
- on low dose Monjauro at home
- SSI
Chronic pain syndrome with RLS
- on Gabapentin
DVT ppx: Lovenox
Code: Full
Total time spent to see the patient, examine the patient, review data and lab results, discuss treatment plan with patient, nursing staff around 55 minutes
Anticipated Discharge: Within 24 hours
Subjective/Interval History
-
Date of Service: January 03, 2025
less cough/ sob
Pain in upper abdomen is les sbut still present
Objective Data
-
Labs:
Laboratory Results
01/03/25
08:37
WBC Pending
Hgb Pending
Hct Pending
Plt Count Pending
Sodium Pending
Potassium Pending
Chloride Pending
Carbon Dioxide Pending
BUN Pending
Creatinine Pending
Glucose Pending
Calcium Pending
Vital Signs:
Vital Signs
Temp Pulse Resp BP Pulse Ox
97.8 F 101 20 109/67 97
01/03/25 07:27 01/03/25 07:27 01/03/25 07:27 01/03/25 07:27 01/03/25 07:27
I&O
01/02/25 01/03/25 01/04/25
06:59 06:59 06:59
Intake Total 1919 1280 / 1280
Balance 1919 1280 / 1280
[2025-01-03 09:29] LABS: Hematocrit 38.8 % (37.0-47.0); Hemoglobin 12.4 g/dL (12.0-16.0); Mean Corp Hgb Conc. 32.0 g/dL (33.0-37.0); Mean Corpuscular Volume 92.4 fL (81.0-99.0); Platelet Count 455 10^3/uL (130-400); Red Cell Dist. Width 14.2 % (11.5-14.5)
[2025-01-03 09:55] LABS: Blood Urea Nitrogen 21 mg/dl (7-17); Calcium 9.1 mg/dl (8.4-10.2); Carbon Dioxide 26 mmol/L (22-30); Chloride 105 mmol/L (98-107); Estimated Creatinine Clearance 60 ml/min; Glucose 116 mg/dl (70-99); Potassium 5.2 mmol/L (3.5-5.1); Sodium 139 mmol/L (135-145); eGFR > 60.00
[2025-01-03] MEDS: ROCEPHIN 1000 MG IV (09:56)
[2025-01-03] MEDS: STERILE WATER FOR INJECTION 10 ML IV (09:57)
--- NOTE | 2025-01-03 10:19 | W.PN.PUL3 ---
Today's Communication / Plan
-
Ok to go off IV steroids, can add on low dose PO prednisone is SOB is returning
Inhalers are changed for her to continue as OP, FU to be arranged
Abx for UTI
Abdominal pain noted, remains on PPI
Discharge planning otherwise per team
Assessment
-
Patient is a 59-year-old female with previous history of COPD, emphysema presented to ER with 2 to 3 days of worsening cough and shortness of breath. She feels this may have been triggered by stress. She was recently diagnosed and treated with
UTI as an outpatient. In ER she was notably tachycardic with heart rate of 115, satting 89% on room air. Her chest x-ray was unremarkable. She had a CT to rule out PE which was negative. She had findings suggestive of pneumonia. She is admitted
for acute exacerbation of COPD.
She is known to our office and follows with Dr. White. She was last seen in 2022. She acknowledges that she had not followed up as an outpatient.
AE COPD
Mild pulmonary insufficiency, 89% on RA
PNA
Leukocytosis, likely steroid-induced
Hyperglycemia
UTI
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
Severe-COPD/emphysema/chronic bronchitis phenotype-air trapping.
Follows w/ [facility], on Stiolto
Pulmonary function testing 06/04/2022: Moderate to severe airflow obstruction with severe gas exchange abnormality. Mild air trapping.
Former smoker-stopped smoking in April 2022
History of abnormal chest CT-micronodules bibasilar, 3mm pulmonary nodule
Breast cancer s/p Mastectomy
Eczema
s/p Cholecystectomy
Right small finger proximal phalanx fracture s/p closed reduction, percutaneous pinning, right small finger proximal phalanx fracture 2016
Plan
Hypoxemia noted on arrival, O2 paul 89%
No oxygen was needed on admission, currently saturating >90% on RA
Home O2 evaluation, she is not known to be on home oxygen
Prior history of lung disease is noted including COPD/emphysema
Follows with Dr. White as an outpatient, last seen 2022
We discussed the importance of follow-up
Suspect patient has AE COPD--moderate to severe obstruction on PFT in 2022
Agree with IV steroids, this can be weaned and transition to prednisone while she is improving
I will add Advair to her regiment which would help with her coughing, she is on Stiolto as OP
This can be changed to Breztri as OP, she would need FU PFTs in office
CXR/CT obtained indicating no acute findings, possible PNA noted
PCT negative
Sputum and urine sent, negative
Can stop abx and observe off
Other imaging reviewed--last LDCT in 2022, she is due in 2025 (CT in hospital negative for 2024)
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
No history of cardiac disease
No prior ECHO for review
Smoking history noted
Continue smoking cessation efforts
Will need outpatient pulmonary evaluation in our office for PFTs and 6MWT
Reviewed with patient and spouse at bedside
Can likely discharge in next 24 hours if she feels improvement
We will follow
Diagnostic Data
Chest X-Ray: 12/31/24- Hyperinflated lungs compatible with COPD/emphysema. Chronic pleural parenchymal scarring inferiorly bilaterally, stable appearance.
No convincing evidence for new lung parenchymal opacity.
CT Scan: CHEST 12/31/24- Examination is negative for pulmonary embolism. Changes of emphysema within both lungs.
Scattered small foci of parenchymal opacity, suggesting scattered foci of small airway disease, as described above. These are new since CT scan of July 21, 2022, although could be acute or chronic. Please correlate with symptoms that suggest acute
pneumonia.
Intrahepatic bile duct air, unchanged from prior CT, the most likely from previous instrumentation.
Fatty infiltration of the visualized liver.
LDCT 2022:There is no evidence of pulmonary malignancy.
There is chronic obstructive pulmonary disease with mild centrilobular emphysema.
The stability of the 3.5 mm noncalcified pulmonary nodule at the anterolateral aspect of the superior segment of the left lower lobe dating back to 10/13/2018 indicates that it is benign.
Echo:
PFT's:
Reports and relevant images were personally reviewed.
Total time spent on this consultation __50__ minutes which includes review of history, physical exam, medications, laboratory data, personal review of imaging, extensive review of outpatient records, discussion with care team and respiratory therapy.
Subjective Data
-
Date of Service:
Date of Service: January 03, 2025
Chief Complaint: Pulmonary Follow Up
Subjective:
Stable on RA, has abdominal complaints
Off IV steroids
Objective Data
Data Reviewed
Vital Signs / I&O / Oxygen:
Vital Signs
Temp Pulse Resp BP Pulse Ox
97.8 F 101 20 109/67 97
01/03/25 07:27 01/03/25 07:27 01/03/25 07:27 01/03/25 07:27 01/03/25 07:27
Intake and Output
01/02/25 01/03/25 01/04/25
06:59 06:59 06:59
Intake Total 1919 1280 / 1280
Balance 1919 1280 / 1280
SaO2 97
Nasal Cannula flow liters per 2
minute
Physical Exam
General: Comfortable and Other (NAD)
HEENT: Normocephalic, Anicteric and Moist Mucous Membranes
Cardiovascular: S1-S2 and Regular Rhythm
Respiratory: Wheeze (on end expiratory ) and Non-Labored Respirations
GI: Soft, Non Distended and Non Tender
Neurology: Awake, Alert, Oriented and No Motor Deficits
Skin: Warm, Dry and Good Color
Labs/Micro/Reports
Lab Data
01/03/25 08:37
01/03/25 08:37
Microbiology
12/31/24 22:21 Sputum Respiratory Culture - Final
Usual Respiratory Erlinda
12/31/24 22:21 Sputum Gram Stain - Final
12/31/24 18:07 Urine Urine Culture - Final
[2025-01-03 11:16] VITALS: BP 129/76
[2025-01-03 12:31] LABS: Glucose - Point of Care 140 mg/dl (70-99)
[2025-01-03 15:23] VITALS: BP 137/68
[2025-01-03 17:04] LABS: Glucose - Point of Care 123 mg/dl (70-99)
[2025-01-03] MEDS: LOVENOX 40 MG SC (17:16)
[2025-01-03] MEDS: ANESTHETIC LOZENGE 1 LOZENGE PO (19:46)
[2025-01-03 21:06] LABS: Glucose - Point of Care 123 mg/dl (70-99)
[2025-01-03] MEDS: NEURONTIN 900 MG PO (21:30)
[2025-01-03] MEDS: LANTUS 0.15 UNITS SC (21:30)
[2025-01-03] MEDS: MELATONIN 3 MG PO (21:31)
[2025-01-03 23:11] VITALS: BP 187/80
[2025-01-04] MEDS: DILAUDID 0.5 MG IV ×3 (02:38→12:02)
--- NOTE | 2025-01-04 03:17 | DOWNTIME ---
There was a logolineup Client [employer] Downtime on 01/04/2025 from 0100 to 01/04/2025 at 0215. Downtime documentation of patient's care, including medication administrations, has been reconciled in the electronic record per guidelines. Refer to the
patient's paper chart under the miscellaneous tab to see printed paper medication records and downtime forms.
[2025-01-04 07:09] VITALS: BP 105/63
[2025-01-04] MEDS: CLARITIN 10 MG PO (07:47)
[2025-01-04] MEDS: PROTONIX 40 MG PO (07:47)
[2025-01-04] MEDS: FARXIGA 10 MG PO (07:47)
[2025-01-04] MEDS: CHANTIX 1 MG PO (07:47)
[2025-01-04] MEDS: MUCINEX 600 MG PO (07:47)
[2025-01-04] MEDS: SPIRIVA RESPIMAT 2.5 MCG 2 PUFF INH (07:59)
[2025-01-04] MEDS: ADVAIR HFA 230/21 MCG INHALER 2 PUFF INH (07:59)
[2025-01-04 08:16] LABS: Glucose - Point of Care 83 mg/dl (70-99)
[2025-01-04 08:25] LABS: Hematocrit 39.3 % (37.0-47.0); Hemoglobin 12.5 g/dL (12.0-16.0); Mean Corp Hgb Conc. 31.8 g/dL (33.0-37.0); Mean Corpuscular Volume 92.0 fL (81.0-99.0); Platelet Count 448 10^3/uL (130-400); Red Cell Dist. Width 14.1 % (11.5-14.5)
[2025-01-04] MEDS: NOVOLOG FLEXPEN-LOW RESISTANCE SC ×2 (08:28→12:12)
--- NOTE | 2025-01-04 09:18 | W.PN.HOSP.TC ---
Addendum entered and electronically signed by Rich Clark MD 01/04/25 15:12:
Addendum
Pt felt she was having vaginal discharge( yeast), d/w pt, she chose vaginal cream, will send a script.
End
Original Note:
Today's Communication/Plan
-
dc
Assessment / Plan
Assessment / Plan
Physical Exam
-
General: No Apparent Distress
HEENT: Normocephalic and Atraumatic
Respiratory: I did not appreciate alot of wheezes, limited over all
Cardiac: Regular Rhythm and S1/S2
GI: Soft and Nontender
MSK; no leg swelling
Neuro: AO x 3, Gait is normal. Non-focal
Psych: Calm
Assessment:
Acute hypoxic respiratory failure with distress/ using accessory muscles, required 2L NC oxygen
Acute COPD exacerbation
Resolved.s/p empiric IV ABx
s/p IV steroids
Continue with the breathing treatment
Patient started to complain of upper abdominal/epigastric pain. She felt could be recurrent pancreatitis. She had history of pancreatitis related to alcohol intake/gallbladder. She has had cholecystectomy. On examination, abdomen is soft, non
tender and not distended. This could be exacerbated from systemic steroid. Will hold on systemic steroid continue with inhaled steroids.
d/w pulmonary doctor, pt sees DR White.
Hypoxia resolved.
Recent UTI
- recently completed Macrobid course, UA remains dirty
-Repeat culture is negative
# Mild hyperkalemia
Resolved.
# epigastric pain
Could be from steroid
Hold systemic steroid
Increase PPI to 40 mg QD. Exam is overall normal abdomen.
Checked lipase, normal
# severe protein-caloric malnutrition
She has COPD/ chronic illness
she reports that medicine made lose the weight, now in process of changing it in OP setting
Type 2 DM
HGB A1C 6.3, good control
dc Lantus as we dc systemic steroid.
- on Farxiga
- on low dose Monjauro at home
- SSI
Chronic pain syndrome with RLS
- on Gabapentin
DVT ppx: Lovenox
Code: Full
Total discharge time spent to see the patient, examine the patient, review data and lab results, discuss discharge plan with patient, nursing staff around 65 minutes
Anticipated Discharge: Today
Subjective/Interval History
-
Date of Service: January 04, 2025
she feels better
No chest pain
Much less abd pain
She requested Percocet upon discharge
Objective Data
-
Labs:
Laboratory Results
01/04/25
07:29
WBC 10.3
Hgb 12.5
Hct 39.3
Plt Count 448 H
Sodium Pending
Potassium Pending
Chloride Pending
Carbon Dioxide Pending
BUN Pending
Creatinine Pending
Glucose Pending
Calcium Pending
Vital Signs:
Vital Signs
Temp Pulse Resp BP Pulse Ox
98.8 F 106 16 105/63 95
01/04/25 07:09 01/04/25 08:02 01/04/25 08:02 01/04/25 07:09 01/04/25 08:44
I&O
01/03/25 01/04/25 01/05/25
06:59 06:59 06:59
Intake Total 1280 / 1280 480 / 480
Balance 1280 / 1280 480 / 480
[2025-01-04 09:27] LABS: Blood Urea Nitrogen 19 mg/dl (7-17); Calcium 8.6 mg/dl (8.4-10.2); Carbon Dioxide 28 mmol/L (22-30); Chloride 105 mmol/L (98-107); Estimated Creatinine Clearance 70 ml/min; Glucose 88 mg/dl (70-99); Potassium 3.9 mmol/L (3.5-5.1); Sodium 138 mmol/L (135-145); eGFR > 60.00
--- NOTE | 2025-01-04 09:28 | W.PN.PUL3 ---
Today's Communication / Plan
-
Add PO prednisone course for 5 days, can complete at home
Continue inhalers at home for now, she requested albuterol refills
Outpatient FU reviewed with patient, we will arrange
Discharge planning per team
Assessment
-
Patient is a 59-year-old female with previous history of COPD, emphysema presented to ER with 2 to 3 days of worsening cough and shortness of breath. She feels this may have been triggered by stress. She was recently diagnosed and treated with
UTI as an outpatient. In ER she was notably tachycardic with heart rate of 115, satting 89% on room air. Her chest x-ray was unremarkable. She had a CT to rule out PE which was negative. She had findings suggestive of pneumonia. She is admitted
for acute exacerbation of COPD.
She is known to our office and follows with Dr. White. She was last seen in 2022. She acknowledges that she had not followed up as an outpatient.
AE COPD
Mild pulmonary insufficiency, 89% on RA
PNA
Leukocytosis, likely steroid-induced
Hyperglycemia
UTI
Conditions present [employer]
Severe-COPD/emphysema/chronic bronchitis phenotype-air trapping.
Follows w/ [facility], on Stiolto
Pulmonary function testing 06/04/2022: Moderate to severe airflow obstruction with severe gas exchange abnormality. Mild air trapping.
Former smoker-stopped smoking in April 2022
History of abnormal chest CT-micronodules bibasilar, 3mm pulmonary nodule
Breast cancer s/p Mastectomy
Eczema
s/p Cholecystectomy
Right small finger proximal phalanx fracture s/p closed reduction, percutaneous pinning, right small finger proximal phalanx fracture 2016
Plan
Hypoxemia noted on arrival, O2 paul 89%
No oxygen was needed on admission, currently saturating >90% on RA
Home O2 evaluation, she is not known to be on home oxygen
Prior history of lung disease is noted including COPD/emphysema
Follows with Dr. White as an outpatient, last seen 2022
We discussed the importance of follow-up
Suspect patient has AE COPD--moderate to severe obstruction on PFT in 2022
IV steroids discontinued due to abdominal pain, will add back on PO prednisone 20mg
Continue Advair to her regiment which would help with her coughing, she is on Stiolto as OP
This can be changed to Breztri as OP, she would need FU PFTs in office
CXR/CT obtained indicating no acute findings, possible PNA noted
PCT negative
Sputum and urine sent, negative
Can stop abx and observe off
Other imaging reviewed--last LDCT in 2022, she is due in 2025 (CT in hospital negative for 2024)
Recurrent UTI, we discussed OP FU with -[facility]
No history of cardiac disease
No prior ECHO for review
Smoking history noted
Continue smoking cessation efforts
Will need outpatient pulmonary evaluation in our office for PFTs and 6MWT
Reviewed with patient and spouse at bedside
Can likely discharge in next 24 hours if she feels improvement
We will follow
Diagnostic Data
Chest X-Ray: 12/31/24- Hyperinflated lungs compatible with COPD/emphysema. Chronic pleural parenchymal scarring inferiorly bilaterally, stable appearance.
No convincing evidence for new lung parenchymal opacity.
CT Scan: CHEST 12/31/24- Examination is negative for pulmonary embolism. Changes of emphysema within both lungs.
Scattered small foci of parenchymal opacity, suggesting scattered foci of small airway disease, as described above. These are new since CT scan of July 21, 2022, although could be acute or chronic. Please correlate with symptoms that suggest acute
pneumonia.
Intrahepatic bile duct air, unchanged from prior CT, the most likely from previous instrumentation.
Fatty infiltration of the visualized liver.
LDCT 2022:There is no evidence of pulmonary malignancy.
There is chronic obstructive pulmonary disease with mild centrilobular emphysema.
The stability of the 3.5 mm noncalcified pulmonary nodule at the anterolateral aspect of the superior segment of the left lower lobe dating back to 10/13/2018 indicates that it is benign.
Echo:
PFT's:
Reports and relevant images were personally reviewed.
Total time spent on this consultation __45__ minutes which includes review of history, physical exam, medications, laboratory data, personal review of imaging, extensive review of outpatient records, discussion with care team and respiratory therapy.
Subjective Data
-
Date of Service:
Date of Service: January 04, 2025
Chief Complaint: Pulmonary Follow Up
Subjective:
No new complaints, stable on RA
Objective Data
Data Reviewed
Vital Signs / I&O / Oxygen:
Vital Signs
Temp Pulse Resp BP Pulse Ox
98.8 F 106 16 105/63 95
01/04/25 07:09 01/04/25 08:02 01/04/25 08:02 01/04/25 07:09 01/04/25 08:44
Intake and Output
01/03/25 01/04/25 01/05/25
06:59 06:59 06:59
Intake Total 1280 / 1280 480 / 480
Balance 1280 / 1280 480 / 480
SaO2 95
Nasal Cannula flow liters per 2
minute
Physical Exam
General: Comfortable and Other (NAD)
HEENT: Normocephalic, Anicteric and Moist Mucous Membranes
Cardiovascular: S1-S2 and Regular Rhythm
Respiratory: Wheeze (on end expiratory ) and Non-Labored Respirations
GI: Soft, Non Distended and Non Tender
Neurology: Awake, Alert, Oriented and No Motor Deficits
Skin: Warm, Dry and Good Color
Labs/Micro/Reports
Lab Data
01/04/25 07:29
01/04/25 07:29
Microbiology
12/31/24 22:21 Sputum Respiratory Culture - Final
Usual Respiratory Erlinda
12/31/24 22:21 Sputum Gram Stain - Final
12/31/24 18:07 Urine Urine Culture - Final
[2025-01-04] MEDS: ROCEPHIN 1000 MG IV (09:34)
[2025-01-04] MEDS: STERILE WATER FOR INJECTION 10 ML IV (09:35)
[2025-01-04 11:58] LABS: Glucose - Point of Care 121 mg/dl (70-99)
--- NOTE | 2025-01-04 12:29 | CM ---
Patient seen at bedside
patient discharged today
patient on room air
N/A IMM
PLAN: Home, no needs
/son to transport
[2025-01-04] MEDS: DELTASONE 20 MG PO (12:39)
[2025-01-04 13:20] VITALS: BP 138/82
--- NOTE | 2025-01-04 15:03 | W.DCSUMMARY ---
Discharge Summary
Discharge Data
Date of Admission: 12/31/24
Date of Discharge: 01/04/25
-
Pending Results: No
Hospital Course
59 years old female presented with shortness of breath and coughing. Patient reported history of recent treatment for urinary tract infection. She was found to have hypoxia with tachycardia. Chest radiography was unremarkable. Scan of the chest
did not show pulmonary embolism but of was suggestive of pneumonia. Patient was evaluated by pulmonary doctor. CT findings were reviewed by pulmonary doctor and felt more consistent with chronic changes. Procalcitonin was negative. She did not
have fever. Culture of sputum and urine did not show any growth. She received empiric treatment of IV antibiotics. She started to improve and did not need oxygen supplementation. Patient complained of epigastric discomfort. Corticosteroid
therapy was stopped. She was maintained on breathing treatments. Patient reported that her pain was similar to prior episode of recurrent pancreatitis. Lipase was normal. She did not have tenderness. Patient requested prescription for Percocet
to use as needed at home. She was advised to follow-up with her primary care doctor. Patient was able to tolerate diet without nausea or vomiting. Abdominal examination remained normal. She was able to ambulate without hypoxia. She remained
hemodynamically stable. Patient was advised to follow-up with pulmonary doctor in outpatient setting. She was discharged home in a stable condition.
Discharge Plan
-
Patient Disposition: Home (Routine Discharge)
Discharge Diagnosis/Procedures: Acute COPD exacerbation:
You were given breathing treatment, oxygen, IV steroid and antibiotics. You were seen by Pulmonary doctor Dr Irizarry.
You had epigastric pain, steroid was stopped, Lipase (pancreatic enzyme) was normal. You were given nausea medicine and pain medicine.
Avoid taking Percocet if driving, operating machines as it can cause drowsiness, sedation. If abdominal pain continues, please discuss with your primary care doctor.
Diet: As tolerated
Referrals:
Sam Cartagena MD [Family Provider, Family Practice] - in one to two weeks
Slava Sanchez MD [Active, Pulmonary Medicine]
Referral Note: 3-4 weeks, w/ PFT
Prescriptions:
New
fluticasone propion-salmeterol 230-21 mcg/actuation Hfa Aerosol Inhaler
2 puff inhalation R BID Qty: 12 0RF
guaifenesin 600 mg Tablet Extended Release 12hr
600 mg PO Q12 Qty: 14 0RF
albuterol sulfate 90 mcg/actuation Hfa Aerosol Inhaler
2 puff inhalation R Q4HPRN PRN (Reason: SOB, cough, wheezing) Qty: 8.5 0RF
Spiriva Respimat 2.5 mcg/actuation Mist
2 puff inhalation R DAILY Qty: 4 0RF
ondansetron HCl 4 mg tablet
4 mg PO BIDPRN PRN (Reason: nausea and vomiting) Qty: 10 0RF
oxycodone-acetaminophen [Percocet] 5-325 mg tablet
1 tab PO BIDPRN PRN (Reason: severe pain) Qty: 10 0RF
miconazole nitrate 4 % (200 mg)- 2 % (9 gram) comb pack,prefill appl, cream
1 appful vaginal DAILY 3 Days Qty: 24 0RF
Continued
alprazolam 0.5 mg Tablet
0.5 mg PO HS PRN (Reason: anxiety)
pantoprazole 40 mg Tablet,Delayed Release (Dr/Ec)
40 mg PO DAILY
loratadine [Claritin] 10 mg Tablet
10 mg PO DAILY
gabapentin 300 mg Tablet
900 mg PO HS
varenicline tartrate 1 mg Tablet
1 mg PO BID
desvenlafaxine succinate 50 mg Tablet Extended Release 24 Hr
50 mg PO 1XD
dapagliflozin propanediol [Farxiga] 10 mg Tablet
10 mg PO DAILY
Rybelsus 3 mg Tablet
3 mg PO DAILY
Mounjaro 2.5 mg/0.5 mL Pen Injector
2.5 mg SC QWEEK
Rx Instructions:
for 4 weeks
Discharge Orders:
Discharge Patient (As Directed); Ordered 01/04/25
Ordered By: Rich Clark
Discharge Date and Time
Discharge Date/Time: 01/04/25 14:31
Print Language: [id number]
== END 2025-01-04 14:31 | disposition home or self-care (01) | DRG 190 ==
LOC: 3 WEST ACU 21:18
PROVIDERS: Internal Medicine; Nurse Practitioner; ADMITTING PHYSICIAN Internal Medicine; ATTENDING PHYSICIAN Internal Medicine; EMERGENCY PHYSICIAN Emergency Medicine; FAMILY PHYSICIAN Family Medicine; OTHER PHYSICIAN Internal Medicine
DX: J44.1 Chronic obstructive pulmonary disease with (acute) exacerbation (principal); E43 Unspecified severe protein-calorie malnutrition; J96.01 Acute respiratory failure with hypoxia; Z68.1 Body mass index [BMI] 19.9 or less, adult; Z16.23 Resistance to quinolones and fluoroquinolones; J44.0 Chronic obstructive pulmonary disease with (acute) lower respiratory infection; F17.200 Nicotine dependence, unspecified, uncomplicated; E11.65 Type 2 diabetes mellitus with hyperglycemia; G25.81 Restless legs syndrome; R91.1 Solitary pulmonary nodule; E87.5 Hyperkalemia; B96.20 Unspecified Escherichia coli [E. coli] as the cause of diseases classified elsewhere; J43.9 Emphysema, unspecified; J98.4 Other disorders of lung; R10.13 Epigastric pain; T38.0X5A Adverse effect of glucocorticoids and synthetic analogues, initial encounter; Z79.899 Other long term (current) drug therapy; Z79.84 Long term (current) use of oral hypoglycemic drugs; Z79.85 Long-term (current) use of injectable non-insulin antidiabetic drugs; Z87.440 Personal history of urinary (tract) infections
CPT/HCPCS: 71046; 71275; 80048; 80053; 81003; 81015; 82962; 83036; 83690; 84145; 85025; 85027; 85379; 87070; 87086; 87205; 93005; 94640; 94644; 99285; 99406; Q9967